=== PATIENT | male | born 1940 | race Caucasian/White ===

== ENCOUNTER 2023-01-07 09:37 | Inpatient (IN) | payer OTHER ==
[2023-01-07 10:17] VITALS: BMI 24.2
[2023-01-07] MEDS ORDERED: LOPERAMIDE HCL 2 MG CAPSULE PO PRN (10:50)
[2023-01-07] MEDS ORDERED: BENZOCAINE/MENTHOL (CHLORASEPTIC ) LOZENGE MM PRN (10:50)
[2023-01-07] MEDS ORDERED: guaiFENesin 600 MG TABLET.ER (FP) PO PRN (10:50)
[2023-01-07] MEDS ORDERED: POLYETHYLENE GLYCOL (HEALTHYLAX) 3350 17 GM PACKET PO PRN (10:50)
[2023-01-07] MEDS ORDERED: ACETAMINOPHEN 325 MG TABLET (FP) PO PRN (10:50)
[2023-01-07] MEDS ORDERED: BENZONATATE 200 MG CAPSULE PO PRN (10:50)
[2023-01-07] MEDS ORDERED: IBUPROFEN 400 MG TABLET (FP) PO PRN (10:50)
[2023-01-07] MEDS ORDERED: P-EPHED 60MG/TRIPROLIDI 2.5MG TABLET PO PRN (10:50)
[2023-01-07] MEDS ORDERED: AMMONIUM LACTATE 12% LOTION 225 GM BOTTLE TP PRN (10:50)
[2023-01-07] MEDS ORDERED: COLLOIDAL OATMEAL 1 BAR EACH TP PRN (10:50)
[2023-01-07] MEDS ORDERED: MAGNESIUM HYDROX 2400MG/30ML ORAL SUSPENSION 30 ML CUP PO PRN (10:50)
[2023-01-07] MEDS ORDERED: MAG HYDROX/AL HYDROX/SIMETH 30 ML UNIT-DOSE CUP PO PRN (10:50)
[2023-01-07] MEDS ORDERED: IBUPROFEN 600 MG TABLET (FP) PO PRN (10:50)
[2023-01-07 14:44] LABS: HEMATOCRIT 45.7 % (35.4-49); HEMOGLOBIN 15.5 GM/dL (11.7-16.9); MCH 32.9 pg (25.7-33.7); MCHC 33.9 g/dl (32.0-35.9); MEAN CELL VOLUME 96.8 fl (80-96); MEAN PLT VOLUME 9.6 fl (7.5-11.1); RBC 4.72 M/mm3 (4.00-5.60); RDW 13.2 % (11.9-15.9); WHITE BLOOD COUNT 8.4 K/mm3 (4.0-10.0)
[2023-01-07 14:53] LABS: CALCIUM 9.8 mg/dL (8.5-10.1)
[2023-01-07 14:54] LABS: ALBUMIN 3.9 g/dl (3.4-5.0); BLOOD UREA NITROGEN 13.8 mg/dL (7-18)
[2023-01-07 14:58] LABS: TOT PROT 7.6 g/dl (6.4-8.2)
[2023-01-07 15:01] LABS: BILIRUBIN,TOTAL 2.2 mg/dL (0.2-1)
[2023-01-07] MEDS: THIAMINE HCL 100 MG TABLET (FP) PO SCH (21:04)
[2023-01-07] MEDS: GABAPENTIN 100 MG CAPSULE PO SCH (21:04)
[2023-01-07] MEDS ORDERED: SUVOREXANT 5 MG TABLET PO PRN (22:00)
[2023-01-07] MEDS ORDERED: MELATONIN 5 MG TABLETS PO SCH (22:00)
[2023-01-08] MEDS: LEVOTHYROXINE NA 25 MCG TABLET (FP) PO SCH (06:08)
[2023-01-08] MEDS ORDERED: TUBERCULIN PPD 5 TU/0.1ML SYRINGE (IN PATIENT USE ONLY) ID ONE (08:30)
[2023-01-08] MEDS ORDERED: TUBERCULIN PPD 5 TU/0.1ML VIAL ID ONE (08:41)
[2023-01-08] MEDS: PRENATAL VITAMINS W/ FOLIC ACID TABLET (FP) PO SCH (09:14)
[2023-01-08] MEDS: amLODIPine BESYLATE 10 MG TABLET (FP) PO SCH (09:14)
[2023-01-08] MEDS: GABAPENTIN 100 MG CAPSULE PO SCH ×2 (09:15→22:01)
[2023-01-08] MEDS: PANTOPRAZOLE 20 MG TABLET PO SCH (09:15)
[2023-01-08 10:32] LABS: PHOSPHOROUS 2.4 mg/dL (2.5-4.9)
[2023-01-08 10:43] LABS: INR 1.19 (0.83-1.09); PROTHROMBIN TIME (PATIENT) 13.8 SEC (9.7-13.0)
[2023-01-08] MEDS: THIAMINE HCL 100 MG TABLET (FP) PO SCH (22:01)
[2023-01-09] MEDS: LEVOTHYROXINE NA 25 MCG TABLET (FP) PO SCH (06:00)
[2023-01-09] MEDS: GABAPENTIN 100 MG CAPSULE PO SCH ×2 (09:24→21:19)
[2023-01-09] MEDS: amLODIPine BESYLATE 10 MG TABLET (FP) PO SCH (09:24)
[2023-01-09] MEDS: PANTOPRAZOLE 20 MG TABLET PO SCH (09:24)
[2023-01-09] MEDS: PRENATAL VITAMINS W/ FOLIC ACID TABLET (FP) PO SCH (09:24)
[2023-01-09] MEDS: THIAMINE HCL 100 MG TABLET (FP) PO SCH (21:19)
[2023-01-10] MEDS: LEVOTHYROXINE NA 25 MCG TABLET (FP) PO SCH (06:09)
[2023-01-10] MEDS: amLODIPine BESYLATE 10 MG TABLET (FP) PO SCH (09:48)
[2023-01-10] MEDS: GABAPENTIN 100 MG CAPSULE PO SCH ×2 (09:48→21:25)
[2023-01-10] MEDS: PRENATAL VITAMINS W/ FOLIC ACID TABLET (FP) PO SCH (09:48)
[2023-01-10] MEDS: PANTOPRAZOLE 20 MG TABLET PO SCH (09:49)
[2023-01-10] MEDS: THIAMINE HCL 100 MG TABLET (FP) PO SCH (21:24)
[2023-01-10] MEDS: SUVOREXANT 5 MG TABLET PO PRN (21:25)
[2023-01-11] MEDS: LEVOTHYROXINE NA 25 MCG TABLET (FP) PO SCH (06:30)
[2023-01-11] MEDS: PRENATAL VITAMINS W/ FOLIC ACID TABLET (FP) PO SCH (09:36)
[2023-01-11] MEDS: PANTOPRAZOLE 20 MG TABLET PO SCH (09:36)
[2023-01-11] MEDS: GABAPENTIN 100 MG CAPSULE PO SCH ×2 (09:36→21:15)
[2023-01-11] MEDS: amLODIPine BESYLATE 10 MG TABLET (FP) PO SCH (09:36)
[2023-01-11 12:53] LABS: URINE APPEARANCE CLEAR; URINE BILIRUBIN NEGATIVE (NEGATIVE); URINE COLOR YELLOW; URINE GLUCOSE (UA) NEGATIVE (NEGATIVE); URINE KETONE NEGATIVE (NEGATIVE); URINE LEUK ESTERASE NEGATIVE (NEGATIVE); URINE NITRITE NEGATIVE (NEGATIVE); URINE PROTEIN NEGATIVE (NEGATIVE)
[2023-01-11] MEDS: SUVOREXANT 5 MG TABLET PO PRN (21:15)
[2023-01-11] MEDS: THIAMINE HCL 100 MG TABLET (FP) PO SCH (21:15)
[2023-01-11] MEDS ORDERED: SUVOREXANT 10 MG TABLET PO PRN (22:00)
[2023-01-12] MEDS: LEVOTHYROXINE NA 25 MCG TABLET (FP) PO SCH (06:36)
[2023-01-12] MEDS: GABAPENTIN 100 MG CAPSULE PO SCH ×2 (09:31→21:04)
[2023-01-12] MEDS: amLODIPine BESYLATE 10 MG TABLET (FP) PO SCH (09:31)
[2023-01-12] MEDS: PANTOPRAZOLE 20 MG TABLET PO SCH (09:31)
[2023-01-12] MEDS: PRENATAL VITAMINS W/ FOLIC ACID TABLET (FP) PO SCH (09:31)
[2023-01-12] MEDS: THIAMINE HCL 100 MG TABLET (FP) PO SCH (21:04)
[2023-01-12] MEDS: SUVOREXANT 5 MG TABLET PO PRN (21:06)
[2023-01-13] MEDS: LEVOTHYROXINE NA 25 MCG TABLET (FP) PO SCH (06:02)
[2023-01-13] MEDS: PANTOPRAZOLE 20 MG TABLET PO SCH (09:31)
[2023-01-13] MEDS: GABAPENTIN 100 MG CAPSULE PO SCH ×2 (09:31→21:26)
[2023-01-13] MEDS: PRENATAL VITAMINS W/ FOLIC ACID TABLET (FP) PO SCH (09:31)
[2023-01-13] MEDS: amLODIPine BESYLATE 10 MG TABLET (FP) PO SCH (09:31)
[2023-01-13 09:42] VITALS: PULSE 61
[2023-01-13] MEDS: THIAMINE HCL 100 MG TABLET (FP) PO SCH (21:26)
[2023-01-13] MEDS: SUVOREXANT 5 MG TABLET PO PRN (21:27)
[2023-01-14] MEDS: LEVOTHYROXINE NA 25 MCG TABLET (FP) PO SCH (06:10)
[2023-01-14 07:08] VITALS: BP 138/70; RESP 16; TEMP 97.3
[2023-01-14] MEDS: PRENATAL VITAMINS W/ FOLIC ACID TABLET (FP) PO SCH (09:24)
[2023-01-14] MEDS: amLODIPine BESYLATE 10 MG TABLET (FP) PO SCH (09:24)
[2023-01-14] MEDS: GABAPENTIN 100 MG CAPSULE PO SCH (09:24)
[2023-01-14] MEDS: PANTOPRAZOLE 20 MG TABLET PO SCH (09:24)
[2023-01-14] MEDS ORDERED: SUVOREXANT 10 MG TABLET PO PRN (22:00)
== END 2023-01-14 11:03 | disposition home or self-care (01) | DRG 895 ==
LOC: YASAS 09:37 → Y3W 12:21
PROVIDERS: ADMIT Allergy & Immunology; ATTEND Psychiatry & Neurology Pain Medicine
PROC: HZ42ZZZ Group Counseling for Substance Abuse Treatment, Cognitive-Behavioral (ICD-10-PCS; principal; 2023-01-07)
DX: F10.20 Alcohol dependence, uncomplicated (principal); F12.10 Cannabis abuse, uncomplicated; F31.9 Bipolar disorder, unspecified; G47.00 Insomnia, unspecified; I10 Essential (primary) hypertension; J44.9 Chronic obstructive pulmonary disease, unspecified; K21.9 Gastro-esophageal reflux disease without esophagitis; M48.061 Spinal stenosis, lumbar region without neurogenic claudication; M54.50 Low back pain, unspecified; G89.29 Other chronic pain; Z20.822 Contact with and (suspected) exposure to COVID-19; R79.1 Abnormal coagulation profile; R29.3 Abnormal posture; Z99.89 Dependence on other enabling machines and devices
CPT/HCPCS: 36415; 71045-TC-FY; 80053; 81003; 82140; 82652; 82962; 83735; 84100; 85027; 85610; 86780; 86803; 87635

== ENCOUNTER 2024-05-30 13:39 | Inpatient (IN) | payer OTHER ==
[2024-05-30 14:09] VITALS: BMI 25.0
[2024-05-30] MEDS ORDERED: BENZOCAINE/MENTHOL (CHLORASEPTIC ) LOZENGE MM PRN (14:29)
[2024-05-30] MEDS ORDERED: MAG HYDROX/AL HYDROX/SIMETH 30 ML UNIT-DOSE CUP PO PRN (14:29)
[2024-05-30] MEDS ORDERED: POLYETHYLENE GLYCOL (HEALTHYLAX) 3350 17 GM PACKET PO PRN (14:29)
[2024-05-30] MEDS ORDERED: NALOXONE (NARCAN) HCL 4 MG/0.1 ML SPRAY NS PRN (14:29)
[2024-05-30] MEDS ORDERED: guaiFENesin 600 MG TABLET.ER (FP) PO PRN (14:29)
[2024-05-30] MEDS ORDERED: ACETAMINOPHEN 325 MG TABLET (FP) PO PRN (14:29)
[2024-05-30] MEDS ORDERED: ONDANSETRON *ODT* 4 MG TABLET SL PRN (14:29)
[2024-05-30] MEDS ORDERED: IBUPROFEN 600 MG TABLET (FP) PO PRN (14:29)
[2024-05-30] MEDS ORDERED: P-EPHED 60MG/TRIPROLIDI 2.5MG TABLET PO PRN (14:29)
[2024-05-30] MEDS ORDERED: BENZONATATE 200 MG CAPSULE PO PRN (14:29)
[2024-05-30] MEDS ORDERED: IBUPROFEN 400 MG TABLET (FP) PO PRN (14:29)
[2024-05-30] MEDS ORDERED: MAGNESIUM HYDROX 2400MG/30ML ORAL SUSPENSION 30 ML CUP PO PRN (14:29)
[2024-05-30] MEDS ORDERED: LOPERAMIDE HCL 2 MG CAPSULE PO PRN (14:29)
[2024-05-30] MEDS ORDERED: MINERAL OIL/PETROLAT/WATER TOPICAL CREAM 113 GM JAR TP PRN (14:31)
[2024-05-30] MEDS ORDERED: ALBUTEROL SO4 HFA INHALER IH PRN (19:17)
[2024-05-30] MEDS: THIAMINE 100 MG TABLET PO SCH (22:08)
[2024-05-30] MEDS: MELATONIN 5 MG TABLETS PO SCH (22:08)
[2024-05-30] MEDS: amLODIPine BESYLATE 5 MG TABLET (FP) PO ONE (22:08)
[2024-05-30] MEDS: AMMONIUM LACTATE 12% LOTION 225 GM BOTTLE TP PRN (22:08)
[2024-05-31] MEDS: PANTOPRAZOLE 20 MG TABLET PO SCH (07:04)
[2024-05-31] MEDS: LEVOTHYROXINE NA 75 MCG TABLET (FP) PO SCH (07:04)
[2024-05-31] MEDS: PRENATAL VITAMINS W/ FOLIC ACID TABLET (FP) PO SCH (09:27)
[2024-05-31] MEDS: BUDESONIDE/FORMETEROL FUMARATE 80/4.5 mcg INHALER IH SCH (09:27)
[2024-05-31] MEDS: amLODIPine BESYLATE 5 MG TABLET (FP) PO SCH (09:27)
[2024-05-31] MEDS ORDERED: LORazepam 1 MG TABLET PO PRN (09:36)
[2024-05-31] MEDS ORDERED: LORazepam 0.5 MG TABLET PO PRN (10:00)
[2024-05-31] MEDS: LORazepam 1 MG TABLET PO SCH (10:23)
[2024-05-31 11:38] LABS: CHLORIDE 103 mmol/L (98-107); HEMATOCRIT 47.4 % (35.4-49); HEMOGLOBIN 15.3 GM/dL (11.7-16.9); MCH 31.7 pg (25.7-33.7); MCHC 32.2 g/dl (32.0-35.9); MEAN CELL VOLUME 98.3 fl (80-96); MEAN PLT VOLUME 9.4 fl (7.5-11.1); PLATELET COUNT 101 10^3/uL (134-434); POTASSIUM 3.8 mmol/L (3.5-5.1); RBC 4.83 M/mm3 (4.00-5.60); RDW 13.8 % (11.9-15.9); SODIUM 139 mmol/L (136-145); WHITE BLOOD COUNT 4.7 K/mm3 (4.0-10.0)
[2024-05-31 12:03] LABS: ALBUMIN 3.7 g/dl (3.4-5.0)
[2024-05-31 12:04] LABS: BILIRUBIN,TOTAL 2.2 mg/dL (0.2-1)
[2024-05-31 12:05] LABS: ALK PHOS 84 U/L (45-117)
[2024-05-31 12:06] LABS: CREATININE 0.8 mg/dL (0.55-1.3); SGOT/AST 66 U/L (15-37)
[2024-05-31 12:07] LABS: ANION GAP 4 mmol/L (4-13); CALCIUM 9.8 mg/dL (8.5-10.1); CO2 32 mmol/L (21-32); GLUCOSE,RANDOM 129 mg/dL (74-106)
[2024-05-31 12:08] LABS: TOT PROT 7.3 g/dl (6.4-8.2)
[2024-05-31 12:11] LABS: SGPT/ALT 58 U/L (13-61)
[2024-05-31] MEDS: SUVOREXANT 5 MG TABLET PO PRN (22:01)
[2024-06-01] MEDS ORDERED: HYDROCORTISONE 0.5% TOPICAL CREAM 30 GM TUBE TP PRN (08:57)
[2024-06-02] MEDS: LORazepam 1 MG TABLET PO SCH (06:05)
[2024-06-02] MEDS: LEVOTHYROXINE NA 25 MCG TABLET (FP) PO SCH (06:54)
[2024-06-03] MEDS ORDERED: LORazepam 0.5 MG TABLET PO PRN
[2024-06-03] MEDS: LORazepam 0.5 MG TABLET PO SCH (05:46)
[2024-06-04] MEDS: LORazepam 0.5 MG TABLET PO ONE (05:38)
[2024-06-04] MEDS: NALOXONE (NYS OPIOID OVERDOSE PROGRAM) 4 MG/0.1 ML SPRAY NS SCH (08:00)
[2024-06-04 14:11] VITALS: BP 109/67; PULSE 71; RESP 17; TEMP 98.5
== END 2024-06-04 14:32 | disposition home or self-care (01) | DRG 897 ==
LOC: YASAS 13:39 → Y6N 15:23
PROVIDERS: ADMIT Allergy & Immunology; ATTEND Allergy & Immunology
PROC: HZ2ZZZZ Detoxification Services for Substance Abuse Treatment (ICD-10-PCS; principal; 2024-05-30)
DX: F10.230 Alcohol dependence with withdrawal, uncomplicated (principal); F12.20 Cannabis dependence, uncomplicated; F31.9 Bipolar disorder, unspecified; E03.9 Hypothyroidism, unspecified; G47.00 Insomnia, unspecified; I10 Essential (primary) hypertension; J44.9 Chronic obstructive pulmonary disease, unspecified; K21.9 Gastro-esophageal reflux disease without esophagitis; M48.061 Spinal stenosis, lumbar region without neurogenic claudication; M54.50 Low back pain, unspecified; G89.29 Other chronic pain; Z99.89 Dependence on other enabling machines and devices
CPT/HCPCS: 36415; 80053; 80307; 85027; 86780; 93005; 93010

== ENCOUNTER 2024-07-03 16:18 | Inpatient (IN) | payer OTHER ==
[2024-07-03 17:02] VITALS: BMI 25.0
[2024-07-03] MEDS ORDERED: IBUPROFEN 400 MG TABLET (FP) PO PRN (17:27)
[2024-07-03] MEDS ORDERED: MAGNESIUM HYDROX 2400MG/30ML ORAL SUSPENSION 30 ML CUP PO PRN (17:27)
[2024-07-03] MEDS ORDERED: NALOXONE (NARCAN) HCL 4 MG/0.1 ML SPRAY NS PRN (17:27)
[2024-07-03] MEDS ORDERED: LOPERAMIDE HCL 2 MG CAPSULE PO PRN (17:27)
[2024-07-03] MEDS ORDERED: guaiFENesin 600 MG TABLET.ER (FP) PO PRN (17:27)
[2024-07-03] MEDS ORDERED: ACETAMINOPHEN 325 MG TABLET (FP) PO PRN (17:27)
[2024-07-03] MEDS ORDERED: BENZONATATE 200 MG CAPSULE PO PRN (17:27)
[2024-07-03] MEDS ORDERED: BISACODYL 5 MG TABLET.DR (FP) PO PRN (17:27)
[2024-07-03] MEDS ORDERED: IBUPROFEN 600 MG TABLET (FP) PO PRN (17:27)
[2024-07-03] MEDS ORDERED: BENZOCAINE/MENTHOL (CHLORASEPTIC ) LOZENGE MM PRN (17:27)
[2024-07-03] MEDS ORDERED: POLYETHYLENE GLYCOL (HEALTHYLAX) 3350 17 GM PACKET PO PRN (17:27)
[2024-07-03] MEDS ORDERED: MAG HYDROX/AL HYDROX/SIMETH 30 ML UNIT-DOSE CUP PO PRN (17:27)
[2024-07-03] MEDS: THIAMINE 100 MG TABLET PO SCH (21:40)
[2024-07-03] MEDS: MELATONIN 5 MG TABLETS PO SCH (21:40)
[2024-07-03] MEDS: BUDESONIDE/FORMETEROL FUMARATE 80/4.5 mcg INHALER IH SCH (21:41)
[2024-07-03] MEDS: ALBUTEROL SO4 HFA INHALER IH PRN (22:23)
[2024-07-03] MEDS: AMMONIUM LACTATE 12% LOTION 225 GM BOTTLE TP PRN (22:25)
[2024-07-04] MEDS: LEVOTHYROXINE NA 75 MCG TABLET (FP) PO SCH (07:12)
[2024-07-04] MEDS ORDERED: amLODIPine BESYLATE 10 MG TABLET (FP) PO SCH ×2 (10:00)
[2024-07-04] MEDS ORDERED: PATIENT'S OWN MEDICATION (NON-FORMULARY) (Fluticasone/Vilanterol 1 PUFF Inhaler) IH SCH (10:00)
[2024-07-04] MEDS: PANTOPRAZOLE 20 MG TABLET PO SCH (10:12)
[2024-07-04] MEDS: MINERAL OIL/PETROLAT/WATER TOPICAL CREAM 454 GM JAR TP SCH (10:12)
[2024-07-04] MEDS: amLODIPine BESYLATE 5 MG TABLET (FP) PO SCH (10:12)
[2024-07-04] MEDS: PRENATAL VITAMINS W/ FOLIC ACID TABLET (FP) PO SCH (10:13)
[2024-07-04] MEDS: DOCUSATE SODIUM 100 MG CAPSULE (FP) PO PRN (11:24)
[2024-07-04 12:35] LABS: POTASSIUM 4.2 mmol/L (3.5-5.1)
[2024-07-04 12:48] LABS: ALBUMIN 3.8 g/dl (3.4-5.0); BLOOD UREA NITROGEN 14.3 mg/dL (7-18); CALCIUM 9.6 mg/dL (8.5-10.1)
[2024-07-04 12:51] LABS: CREATININE 0.9 mg/dL (0.55-1.3)
[2024-07-04 12:52] LABS: BILIRUBIN,TOTAL 1.8 mg/dL (0.2-1); TOT PROT 7.5 g/dl (6.4-8.2)
[2024-07-04 13:26] LABS: HEMATOCRIT 43.3 % (35.4-49); HEMOGLOBIN 14.7 GM/dL (11.7-16.9); MCH 32.3 pg (25.7-33.7); MEAN CELL VOLUME 95.1 fl (80-96); RBC 4.56 M/mm3 (4.00-5.60); RDW 13.1 % (11.9-15.9); WHITE BLOOD COUNT 6.7 K/mm3 (4.0-10.0)
[2024-07-04 20:49] LABS: URINE APPEARANCE CLEAR; URINE BILIRUBIN NEGATIVE (NEGATIVE); URINE COLOR YELLOW; URINE GLUCOSE (UA) NEGATIVE (NEGATIVE); URINE KETONE NEGATIVE (NEGATIVE); URINE LEUK ESTERASE NEGATIVE (NEGATIVE); URINE NITRITE NEGATIVE (NEGATIVE); URINE PROTEIN NEGATIVE (NEGATIVE)
[2024-07-06] MEDS: FLUTICASONE PROP 0.05% 16 GM NASAL SPRAY NS SCH ×2 (11:33→21:33)
[2024-07-06] MEDS ORDERED: MOMETASONE FUROATE TP SCH (14:00)
[2024-07-06] MEDS: MELATONIN 5 MG TABLETS PO SCH (21:58)
[2024-07-07] MEDS: LEVOTHYROXINE NA 25 MCG TABLET (FP) PO SCH (06:30)
[2024-07-07] MEDS: SUVOREXANT 5 MG TABLET PO PRN (22:05)
[2024-07-08] MEDS: HYDROCORTISONE 1% TOPICAL LOTION 118 ML BOTTLE TP PRN (09:51)
[2024-07-12] MEDS ORDERED: diphenhydrAMINE HCL 25 MG CAPSULE (FP) PO PRN ×2 (14:45→14:47)
[2024-07-12] MEDS: PANTOPRAZOLE 20 MG TABLET PO PRN (20:02)
[2024-07-14] MEDS: SUVOREXANT 5 MG TABLET PO PRN (21:30)
[2024-07-16] MEDS ORDERED: FLUTICASONE PROP 0.05% 16 GM NASAL SPRAY NS PRN (12:12)
[2024-07-17 06:31] VITALS: BP 144/71; PULSE 72; RESP 16; TEMP 97.8
== END 2024-07-17 09:30 | disposition home or self-care (01) | DRG 895 ==
LOC: YASAS 16:18 → Y3E 19:15
PROVIDERS: ADMIT Psychiatry & Neurology Pain Medicine; ATTEND Psychiatry & Neurology Pain Medicine
PROC: HZ42ZZZ Group Counseling for Substance Abuse Treatment, Cognitive-Behavioral (ICD-10-PCS; principal; 2024-07-03)
DX: F10.20 Alcohol dependence, uncomplicated (principal); F19.282 Other psychoactive substance dependence with psychoactive substance-induced sleep disorder; F12.20 Cannabis dependence, uncomplicated; F31.9 Bipolar disorder, unspecified; I10 Essential (primary) hypertension; J44.9 Chronic obstructive pulmonary disease, unspecified; E03.9 Hypothyroidism, unspecified; J30.2 Other seasonal allergic rhinitis; K21.9 Gastro-esophageal reflux disease without esophagitis; L29.89 Other pruritus; L85.3 Xerosis cutis; M54.50 Low back pain, unspecified; M48.061 Spinal stenosis, lumbar region without neurogenic claudication; G89.29 Other chronic pain
CPT/HCPCS: 36415; 80053; 80305; 80307; 81003; 85027

== ENCOUNTER 2024-10-17 13:49 | Inpatient (IN) | payer OTHER ==
[2024-10-17 14:27] VITALS: BMI 25.0
[2024-10-17] MEDS ORDERED: POLYETHYLENE GLYCOL (HEALTHYLAX) 3350 17 GM PACKET PO PRN (14:46)
[2024-10-17] MEDS ORDERED: BENZOCAINE/MENTHOL (CHLORASEPTIC ) LOZENGE MM PRN (14:46)
[2024-10-17] MEDS ORDERED: LOPERAMIDE HCL 2 MG CAPSULE PO PRN (14:46)
[2024-10-17] MEDS ORDERED: hydrOXYzine PAMOATE 25 MG CAPSULE (FP) PO PRN (14:46)
[2024-10-17] MEDS ORDERED: MAG HYDROX/AL HYDROX/SIMETH 30 ML UNIT-DOSE CUP PO PRN (14:46)
[2024-10-17] MEDS ORDERED: ACETAMINOPHEN 325 MG TABLET (FP) PO PRN (14:46)
[2024-10-17] MEDS ORDERED: BENZONATATE 200 MG CAPSULE PO PRN (14:46)
[2024-10-17] MEDS ORDERED: guaiFENesin 600 MG TABLET.ER (FP) PO PRN (14:46)
[2024-10-17] MEDS ORDERED: NALOXONE (NARCAN) HCL 4 MG/0.1 ML SPRAY NS PRN (14:46)
[2024-10-17] MEDS ORDERED: IBUPROFEN 400 MG TABLET (FP) PO PRN (14:46)
[2024-10-17] MEDS ORDERED: amLODIPine BESYLATE 5 MG TABLET (FP) ONE (17:25)
[2024-10-17] MEDS: amLODIPine BESYLATE 5 MG TABLET (FP) PO SCH (17:28)
[2024-10-17] MEDS: FLUTICASONE PROP 0.05% 16 GM NASAL SPRAY NS SCH (21:06)
[2024-10-17] MEDS: MELATONIN 5 MG TABLETS PO SCH (21:06)
[2024-10-17] MEDS: GABAPENTIN 100 MG CAPSULE PO SCH (21:07)
[2024-10-17] MEDS: THIAMINE 100 MG TABLET PO SCH (21:07)
[2024-10-18] MEDS: LEVOTHYROXINE NA 25 MCG TABLET (FP) PO SCH (06:39)
[2024-10-18] MEDS: hydrOXYzine PAMOATE 25 MG CAPSULE (FP) PO PRN (08:44)
[2024-10-18] MEDS: LORATADINE 10 MG TABLET PO SCH (09:45)
[2024-10-18] MEDS: PANTOPRAZOLE 20 MG TABLET PO SCH (09:46)
[2024-10-18] MEDS: PRENATAL VITAMINS W/ FOLIC ACID TABLET (FP) PO SCH (09:46)
[2024-10-18] MEDS: BUDESONIDE/FORMETEROL FUMARATE 80/4.5 mcg INHALER IH SCH (09:47)
[2024-10-18] MEDS: MINERAL OIL/PETROLAT/WATER TOPICAL CREAM 113 GM JAR TP SCH (09:49)
[2024-10-18] MEDS ORDERED: LEVOTHYROXINE NA 75 MCG TABLET (FP) PO SCH (10:00)
[2024-10-18] MEDS: MAGNESIUM HYDROX 2400MG/30ML ORAL SUSPENSION 30 ML CUP PO PRN (21:19)
[2024-10-19 11:11] LABS: IMMATURE PLATELET FRACTION # 9.10 x10^3/uL; MCHC 33.0 g/dl (32.3-36.5); MEAN CELL VOLUME 97.3 fl (79.0-92.2); RDW 12.4 % (12.6-16.6)
[2024-10-19 11:40] LABS: MEAN PLT VOLUME 11.7 fl (9.4-12.4)
[2024-10-19 11:42] LABS: CO2 32.0 mmol/L (21-32); GLUCOSE,RANDOM 171.0 mg/dL (74-106)
[2024-10-19 11:45] LABS: CREATININE 0.8 mg/dL (0.55-1.3); SGOT/AST 48.0 U/L (15-37); SGPT/ALT 39.0 U/L (13-61)
[2024-10-19 11:47] LABS: TOT PROT 6.7 g/dl (6.4-8.2)
[2024-10-19 11:48] LABS: ALK PHOS 88.0 U/L (45-117)
[2024-10-19] MEDS: SUVOREXANT 5 MG TABLET PO PRN (21:18)
[2024-10-20] MEDS: IBUPROFEN 600 MG TABLET (FP) PO PRN (04:25)
[2024-10-22] MEDS: LIDOCAINE 5% TOPICAL PATCH TP SCH (15:50)
[2024-10-22] MEDS: NALTREXONE HCL 50 MG TABLET PO ONE (18:08)
[2024-10-22] MEDS: SUVOREXANT 5 MG TABLET PO PRN (21:15)
[2024-10-22] MEDS: LIDOCAINE PATCH REMOVAL MC SCH (21:57)
[2024-10-23] MEDS: NALTREXONE HCL 50 MG TABLET PO SCH (09:45)
[2024-10-24] MEDS: ARTIFICIAL TEARS OPHTHALMIC DROPS OU PRN (06:27)
[2024-10-25] MEDS ORDERED: LIDOCAINE 5% TOPICAL PATCH TP PRN (10:27)
[2024-10-26] MEDS: SUVOREXANT 5 MG TABLET PO PRN (21:17)
[2024-10-29] MEDS: SUVOREXANT 5 MG TABLET PO PRN (21:11)
[2024-10-31] MEDS: AMMONIUM LACTATE 12% LOTION 225 GM BOTTLE TP PRN (06:07)
[2024-11-01] MEDS: SUVOREXANT 5 MG TABLET PO PRN (21:24)
[2024-11-04] MEDS: SUVOREXANT 5 MG TABLET PO PRN (21:21)
[2024-11-07] MEDS: SUVOREXANT 5 MG TABLET PO PRN (21:30)
[2024-11-08] MEDS: MOMETASONE FUROATE TP SCH (21:18)
[2024-11-09] MEDS: SUVOREXANT 5 MG TABLET PO PRN (21:11)
[2024-11-12 06:26] VITALS: RESP 16
[2024-11-12] MEDS: SUVOREXANT 5 MG TABLET PO PRN (21:41)
[2024-11-14 07:01] VITALS: BP 117/66; PULSE 69; TEMP 97.6
== END 2024-11-14 09:28 | disposition home or self-care (01) | DRG 895 ==
LOC: YASAS 13:49 → Y3E 17:42
PROVIDERS: ADMIT Psychiatry & Neurology Pain Medicine; ATTEND Psychiatry & Neurology Pain Medicine
PROC: HZ42ZZZ Group Counseling for Substance Abuse Treatment, Cognitive-Behavioral (ICD-10-PCS; principal; 2024-10-17)
DX: F10.20 Alcohol dependence, uncomplicated (principal); F19.282 Other psychoactive substance dependence with psychoactive substance-induced sleep disorder; F12.20 Cannabis dependence, uncomplicated; G47.00 Insomnia, unspecified; I10 Essential (primary) hypertension; J44.9 Chronic obstructive pulmonary disease, unspecified; E03.9 Hypothyroidism, unspecified; L30.9 Dermatitis, unspecified; L85.3 Xerosis cutis; M48.061 Spinal stenosis, lumbar region without neurogenic claudication; M54.50 Low back pain, unspecified; G89.29 Other chronic pain; Z87.891 Personal history of nicotine dependence
CPT/HCPCS: 36415; 80053; 82140; 82962; 85027